=== PATIENT | male | born 1965 | race Caucasian/White ===

== ENCOUNTER 2018-03-06 01:07 | Emergency (ER) | payer OTHER ==
[~2018-03-06] VITALS: Ht 180.3 cm; Wt 88.5 kg
[~2018-03-06 01:07] MED LIST: LEVSIN0.125 MG PO; PROTONIX40 MG PO; ZANTAC300 MG PO; ZOFRAN4 MG PO
== END 2018-03-06 11:39 | disposition home or self-care (01) ==
LOC: ER 01:07 → CPU-OBS 01:09 → ER 11:39
DX: R07.89 Other chest pain (principal); R00.2 Palpitations
CPT/HCPCS: G0378; G0379; 93005